=== PATIENT | male | born 1945 | race Caucasian/White ===

== ENCOUNTER → 2016-06-05 | Outpatient (CLI) | payer BC ==
[~2016-06-05] MED LIST: DSY50 PO; LEVO50TA6 PO; PROP80CA PO
== END | disposition home or self-care (01) ==
LOC: C.LABBC 10:53
PROVIDERS: ATTEND Internal Medicine Geriatric Medicine
DX: C61 Malignant neoplasm of prostate (principal)

== ENCOUNTER → 2016-12-16 | Outpatient (CLI) | payer BC ==
[2016-12-16 11:02] LABS: BASO % 0.9 %; BASO ABS # 0.05 K/uL (0-0.2); COMPLETE YES; EOS % 2.2 %; HEMATOCRIT 38.2 % (42-52); IG% 0.4 %; LYMPH % 29.3 %; LYMPH ABS # 1.62 K/uL (1.2-3.4); MEAN CELL VOLUME 96.2 fL (80-100); MEAN CORPUSCULAR HGB CONC 33.2 g/dl (32-36); MEAN PLATELET VOLUME 10.1 fL (7.4-10.4); MONO % 12.1 %; NEUT % 55.1 %; PLATELET COUNT 201 K/uL (130-400); RED BLOOD COUNT 3.97 M/uL (4.7-6.1); WHITE BLOOD COUNT 5.52 K/uL (4.8-10.8)
[2016-12-16 11:15] LABS: ALT/SGPT 23 U/L (12-78); AST/SGOT 14 U/L (15-37); BLOOD UREA NITROGEN 19 mg/dl (7-18); BUN/CREATININE RATIO 15.8 (10-20); CALCIUM 9.4 mg/dl (8.5-10.1); CARBON DIOXIDE 22 mmol/L (21-32); CHLORIDE 102 mmol/L (98-107); CHOLESTEROL 123 mg/dl (0-200); GLUCOSE 111 mg/dl (70-99); POTASSIUM 4.4 mmol/L (3.5-5.1); SODIUM 133 mmol/L (136-145); TRIGLYCERIDES 86 mg/dl (0-150); VERY LOW DENSITY LIPOPROT CALC 17 mg/dl
[2016-12-16 11:26] LABS: ALB/GLOB RATIO 0.9 (0.9-2); ALKALINE PHOSPHATASE 60 U/L (45-117); CHOLESTEROL/HDL RATIO 2.7; FERRITIN 104.8 ng/ml (8.0-388.0); HDL CHOLESTEROL 46 mg/dl; LDL CHOLESTEROL CALCULATED 60 mg/dl
--- NOTE | 2016-12-23 06:18 | CODING QUERY MEDICAL NECESSITY ---
SUPPORTING DIAGNOSIS NEEDED Dr. Mcneil, A supporting diagnosis is required for the test/procedure performed on this patient in order for us to be reimbursed by the patient's insurance. Please provide a supporting diagnosis for the following test/procedure listed below next to the test name along with your signature. *If there is no additional diagnosis for this patient that would support the following test/procedure please document that below next to the test/procedure. Test(s)/Procedure(s) that require a supporting diagnosis: * ([id number]) B12 VITAMIN LEVEL DIAGNOSIS: DATE OF SERVICE: 12/16/16 Provider Signature: Date: Thank you Jae Lauren [facility] Information Management Once completed, please kindly fax back to [phone] For questions please call [phone]
== END | disposition home or self-care (01) ==
LOC: C.LABBC 08:55
PROVIDERS: ATTEND Internal Medicine Geriatric Medicine
DX: C61 Malignant neoplasm of prostate (principal); D64.9 Anemia, unspecified; I10 Essential (primary) hypertension; E78.5 Hyperlipidemia, unspecified; E03.9 Hypothyroidism, unspecified

== ENCOUNTER → 2017-04-16 | Outpatient (CLI) | payer BC ==
[2017-04-16 16:38] LABS: BASO % 0.6 %; BASO ABS # 0.04 K/uL (0-0.2); EOS % 1.5 %; HEMATOCRIT 36.9 % (42-52); HEMOGLOBIN 12.5 g/dL (14.0-18.0); IG# 0.03 K/uL (0.00-0.02); LYMPH % 20.7 %; LYMPH ABS # 1.42 K/uL (1.2-3.4); MEAN CELL VOLUME 96.3 fL (80-100); MEAN CORPUSCULAR HEMOGLOBIN 32.6 pg (25-34); MEAN CORPUSCULAR HGB CONC 33.9 g/dl (32-36); MEAN PLATELET VOLUME 10.8 fL (7.4-10.4); MONO % 10.2 %; NEUT % 66.6 %; NEUT ABS # 4.56 K/uL (1.4-6.5); PLATELET COUNT 198 K/uL (130-400); RED CELL DISTRIBUTION WIDTH SD 42.3 fL (36.4-46.3); WHITE BLOOD COUNT 6.85 K/uL (4.8-10.8)
[2017-04-16 16:58] LABS: BLOOD UREA NITROGEN 19 mg/dl (7-18); CALCIUM 9.4 mg/dl (8.5-10.1); CARBON DIOXIDE 25 mmol/L (21-32); CREATININE 1.31 mg/dl (0.60-1.40); GLUCOSE 131 mg/dl (70-99); SODIUM 129 mmol/L (136-145)
== END | disposition home or self-care (01) ==
LOC: C.LABBC 13:39
PROVIDERS: ATTEND Internal Medicine Geriatric Medicine
DX: D64.9 Anemia, unspecified (principal); I10 Essential (primary) hypertension; R31.9 Hematuria, unspecified

== ENCOUNTER → 2017-04-21 | Outpatient (CLI) | payer BC ==
--- NOTE | 2017-04-21 10:48 | DIAGNOSTIC IMAGING REPORT ---
CT ABD/PELVIS COMBO CLINICAL HISTORY: R31.9 [id number] PROSTATE CARCINOMA COMPARISON STUDY: 16 TECHNIQUE: Unenhanced images were obtained to the abdomen and pelvis. The patient was then injected with 50 cc of Optiray 320. After 5 minute delay, the patient is rescanned in a dynamic helical fashion with additional injection of 38 cc Optiray 320. A dose lowering technique was utilized adhering to the principles of ALARA. CT DOSE: 855.74 mGy.cm FINDINGS: Lower chest: There are coronary artery calcifications present. There is no focal pulmonary consolidation. Liver: The contrast-enhanced liver is normal in size, contour, and attenuation. There is no intrahepatic biliary ductal dilatation. The hepatic veins and portal veins are patent. Gallbladder: Unremarkable. Spleen: Normal in size and attenuation. Pancreas: Unremarkable. Adrenal glands: Unremarkable. Kidneys: There are punctate nonobstructing bilateral renal calculi. No ureteral or bladder calculi are visualized. There is a 31 mm right renal cyst. No solid renal masses are visualized. No collecting system filling defects are visualized. Bowel: There are no transition zone to indicate bowel obstruction. There is colonic diverticulosis. There are no acute peridiverticular inflammatory changes. The appendix appears normal. Peritoneum: There is no intraperitoneal free air or abdominal ascites. There is a small fat-containing right inguinal hernia. Vasculature: The abdominal aorta is normal in course and caliber. Adenopathy: None. Pelvic viscera: Prostate radiotherapy seeds are visualized. Skeletal structures: No destructive osseous lesions are seen. IMPRESSION: 1. Tiny nonobstructing renal calculi 2. 31 mm right renal cyst 3. No solid renal masses identified 4. No acute inflammatory changes Electronically signed by: Cameron Wen M.D. 04/21/2017 10:47 AM Dictated Date/Time: 04/21/2017 10:41 AM
== END | disposition home or self-care (01) ==
LOC: C.CTS 09:31
PROVIDERS: ATTEND Internal Medicine Geriatric Medicine
DX: N20.0 Calculus of kidney (principal); N28.1 Cyst of kidney, acquired

== ENCOUNTER → 2017-04-26 | Outpatient (CLI) | payer BC | END | disposition home or self-care (01) | LOC: C.LABBC 14:58 | PROVIDERS: ATTEND Internal Medicine Geriatric Medicine | DX: R31.9 Hematuria, unspecified (principal) ==

== ENCOUNTER → 2017-05-31 | Outpatient (CLI) | payer BC | END | disposition home or self-care (01) | LOC: C.PATHSPEC 11:17 | PROVIDERS: ATTEND Urology | DX: R39.9 Unspecified symptoms and signs involving the genitourinary system (principal) ==

== ENCOUNTER → 2017-06-18 | Outpatient (CLI) | payer BC | END | disposition home or self-care (01) | LOC: C.LABBC 09:35 | PROVIDERS: ATTEND Internal Medicine Geriatric Medicine | DX: C61 Malignant neoplasm of prostate (principal) ==